=== PATIENT | male | born 1980 | race African-American/Black ===

== ENCOUNTER 2017-09-21 16:39 | Emergency (ER) | payer OTHER ==
[~2017-09-21] VITALS: Ht 193 cm; Wt 121.2 kg
[~2017-09-21 16:39] MED LIST: AMOXICILLIN500 M1 PO; HYDROCODON-ACE1 EAC7 PO; MOBIC7.5 MG PO; MOTRIN800 MG PO; NORCO 5/3251 TABLET PO
[2017-09-21] MEDS ORDERED: PEN-VEE K,VEET500 MG PO (18:16)
[2017-09-21 18:35] VITALS: BP 116/82
== END 2017-09-21 18:36 | disposition home or self-care (01) ==
LOC: EME 16:39
PROC: 0CDWXZ0 Extraction of Upper Tooth, Single, External Approach (ICD-10-PCS; principal; 2017-09-21)
DX: K08.129 Complete loss of teeth due to periodontal diseases, unspecified class (principal); F17.200 Nicotine dependence, unspecified, uncomplicated
CPT/HCPCS: 99281; 99284